=== PATIENT | male | born 1990 | race American Indian/Alaskan Native ===

== ENCOUNTER 2018-12-17 18:03 | Emergency (ER) | payer MEDICAID ==
--- NOTE | 2018-12-17 18:17 | Emergency Department Report ---
Blank Doc - Documentation Documentation: This is a 28-year-old male that presents with abdominal pain and diarrhea. This initial assessment/diagnostic orders/clinical plan/treatment(s) is/are subject to change based on patient's health status, clinical progression and re- assessment by fellow clinical providers in the ED. Further treatment and workup at subsequent clinical providers discretion. Patient/guardians urged not to elope from the ED as their condition may be serious if not clinically assessed and managed. Initial orders include: 1- Patient sent to [facility] for further evaluation and treatment 2- labs 3- UA
[2018-12-17 18:46] LABS: Basophils % (Auto) 0.4 % (0.0-1.8); Eosinophils # (Auto) 0.1 K/mm3 (0.0-0.4); Eosinophils % (Auto) 1.7 % (0.0-4.3); Hematocrit 40.9 % (35.5-45.6); Hemoglobin 14.2 gm/dl (11.8-15.2); Lymphocytes # (Auto) 2.8 K/mm3 (1.2-5.4); Mean Corpuscular HGB Conc 35 % (32-34); Mean Corpuscular Volume 94 fl (84-94); Monocytes # (Auto) 0.6 K/mm3 (0.0-0.8); Monocytes % (Auto) 7.1 % (0.0-7.3); Platelet Count 227 K/mm3 (140-440); Red Blood Count 4.34 M/mm3 (3.65-5.03); Red Cell Distribution Width 12.8 % (13.2-15.2)
--- NOTE | 2018-12-17 19:00 | XRay Report ---
. ABDOMEN 3 views, 12/17/2018 INDICATION: abd pain FINDINGS: The bowel gas pattern is within normal limits. There are no dilated loops of large or small bowel. No free air is identified. No radiopaque urinary tract calculi are seen. Lungs are clear. IMPRESSION: No acute findings. Signer Name: Jose Banda MD Signed: 12/17/2018 6:56 PM Workstation Name: [id number]
[2018-12-17 19:07] LABS: Alanine Aminotransferase 23 units/L (7-56); Albumin 4.2 g/dL (3.9-5); BUN/Creatinine Ratio 24; Blood Urea Nitrogen 22 mg/dL (9-20); Calcium 9.5 mg/dL (8.4-10.2); Hemolysis Index 17
[2018-12-17 19:39] LABS: Bilirubin,Urine NEG (Negative); Blood,Urine SM (Negative); Calcium Oxalate Crystals,Urine 1+; Color,Urine Yellow (Yellow); Mucus,Urine 1+ /HPF; Protein,Urine <15 mg/dL mg/dL (Negative); Urobilinogen,Urine < 2.0 mg/dL (<2.0)
[2018-12-17] MEDS ORDERED: NACL 0.9% 1000 ML 1,000 ML IV ONE (21:01)
[2018-12-17] MEDS ORDERED: TORADOL IV ONE (21:01)
[2018-12-17] MEDS ORDERED: ZOFRAN IV ONE (21:01)
[2018-12-17] MEDS ORDERED: TORADOL ONE (21:18)
--- NOTE | 2018-12-17 21:38 | Emergency Department Report ---
ED Abdominal Pain HPI - General Chief Complaint: Abdominal Pain Stated Complaint: ABD PAIN Time Seen by Provider: 12/17/18 18:16 Source: patient Mode of arrival: Ambulatory Limitations: No Limitations - History of Present Illness Initial Comments: This is a 28-year-old male that presents with abdominal pain and diarrhea. sudden onset this am state he ate left over chicken last pm and was awakened by abd pain this am approx 4am, pain described as sharp aching periumbilical radiating to right flank, dysuria and frequency. pt denies fever does endorse alvin david MD Complaint: abdominal pain Onset/Timin -: hour(s) Location: periumbilical, R flank Radiation: R flank Migration to: R flank Severity: moderate Severity scale (0 -10): 5 Quality: aching, sharp Consistency: constant Improves With: nothing Worsens With: eating Associated Symptoms: nausea, vomiting, dysuria - Related Data Previous Rx's Medication Instructions Recorded Last Taken Type Ondansetron [Zofran Odt] 4 mg PO Q8HR PRN #12 tab.rapdis 12/17/18 Unknown Rx Tamsulosin [Flomax] 0.4 mg PO QDAY 15 Days #15 cap 12/17/18 Unknown Rx traMADol [Ultram] 50 mg PO Q6HR PRN #12 tablet 12/17/18 Unknown Rx Allergies Allergy/AdvReac Type Severity Reaction Status Date / Time amoxicillin Allergy Unknown Verified 12/17/18 18:21 Penicillins Allergy Unknown Verified 12/17/18 18:21 ED Review of Systems ROS: Stated complaint: ABD PAIN Other details as noted in HPI Constitutional: malaise. denies: chills, fever Eyes: denies: eye pain, eye discharge, vision change ENT: denies: ear pain, throat pain Respiratory: denies: cough, shortness of breath, wheezing Cardiovascular: denies: chest pain, palpitations Endocrine: no symptoms reported Gastrointestinal: abdominal pain, nausea, vomiting Genitourinary: urgency, dysuria, frequency. denies: hematuria, discharge Musculoskeletal: denies: back pain, joint swelling, arthralgia Skin: denies: rash, lesions Neurological: denies: headache, weakness, paresthesias Psychiatric: denies: anxiety, depression Hematological/Lymphatic: denies: easy bleeding, easy bruising ED Past Medical Hx - Past Medical History Previous Medical History?: Yes Hx Seizures: Yes Hx Psychiatric Treatment: Yes (bipolar,) Additional medical history: h pylori - Surgical History Past Surgical History?: Yes Additional Surgical History: intubated, abd surgery - Social History Smoking Status: Never Smoker Substance Use Type: None - Medications Home Medications: Home Medications Medication Instructions Recorded Confirmed Last Taken Type Ondansetron [Zofran Odt] 4 mg PO Q8HR PRN #12 tab.rapdis 12/17/18 Unknown Rx Tamsulosin [Flomax] 0.4 mg PO QDAY 15 Days #15 cap 12/17/18 Unknown Rx traMADol [Ultram] 50 mg PO Q6HR PRN #12 tablet 12/17/18 Unknown Rx ED Physical Exam - General Limitations: No Limitations General appearance: alert, in no apparent distress - Head Head exam: Present: atraumatic, normocephalic - Eye Eye exam: Present: normal appearance, PERRL, EOMI Pupils: Present: normal accommodation - ENT ENT exam: Present: mucous membranes moist - Neck Neck exam: Present: normal inspection, full ROM. Absent: tenderness, lymphadenopathy - Respiratory Respiratory exam: Present: normal lung sounds bilaterally, chest wall tenderness. Absent: respiratory distress, wheezes, stridor - Cardiovascular Cardiovascular Exam: Present: regular rate, normal rhythm, normal heart sounds. Absent: systolic murmur, diastolic murmur, rubs, gallop - GI/Abdominal GI/Abdominal exam: Present: soft, tenderness (periumbilical ), normal bowel sounds. Absent: distended, guarding, rebound, rigid, bruit, hernia - Rectal Rectal exam: Present: deferred - Extremities Exam Extremities exam: Present: normal inspection, full ROM, normal capillary refill. Absent: tenderness - Back Exam Back exam: Present: normal inspection, full ROM, tenderness, CVA tenderness (R). Absent: CVA tenderness (L), muscle spasm, rash noted - Neurological Exam Neurological exam: Present: alert, oriented X3, CN II-XII intact, normal gait, reflexes normal. Absent: motor sensory deficit - Psychiatric Psychiatric exam: Present: normal affect, normal mood - Skin Skin exam: Present: warm, dry, intact, normal color. Absent: rash ED Course Vital Signs 12/17/18 12/17/18 18:16 22:29 Temperature 98.3 F 98.7 F Pulse Rate 87 62 Respiratory 16 14 Rate Blood Pressure 154/82 Blood Pressure 100/65 [Left] O2 Sat by Pulse 97 97 Oximetry ED Medical Decision Making - Lab Data Result diagrams: 12/17/18 18:19 12/17/18 18:19 Labs 12/17/18 12/17/18 12/17/18 18:19 18:19 19:26 WBC 8.7 RBC 4.34 Hgb 14.2 Hct 40.9 MCV 94 MCH 33 H MCHC 35 H RDW 12.8 L Plt Count 227 Lymph % (Auto) 32.0 Gregg % (Auto) 7.1 Eos % (Auto) 1.7 Baso % (Auto) 0.4 Lymph # 2.8 Gregg # 0.6 Eos # 0.1 Baso # 0.0 Seg Neutrophils % 58.8 Seg Neutrophils # 5.1 Sodium 137 Potassium 3.7 Chloride 103.7 Carbon Dioxide 20 L Anion Gap 17 BUN 22 H Creatinine 0.9 Estimated GFR > 60 BUN/Creatinine Ratio 24 Glucose 114 H Calcium 9.5 Total Bilirubin 0.20 AST 24 ALT 23 Alkaline Phosphatase 67 Total Protein 7.6 Albumin 4.2 Albumin/Globulin Ratio 1.2 Lipase 31 Urine Color Yellow Urine Turbidity Slightly-cloudy Urine pH 6.0 Ur Specific [place] 1.026 Urine Protein <15 mg/dl Urine Glucose (UA) Neg Urine Ketones Tr Urine Blood Sm Urine Nitrite Neg Urine Bilirubin Neg Urine Urobilinogen < 2.0 Ur Leukocyte Esterase Neg Urine WBC (Auto) 3.0 Urine RBC (Auto) 19.0 Calcium Oxalate Crystal 1+ Urine Mucus 1+ - Radiology Data Radiology results: report reviewed, image reviewed Ordering Physician: MITZI ROCK NP Date of Service: 12/17/18 Procedure(s): CT abdomen pelvis wo con Accession Number(s): [id number] cc: MITZI ROCK NP CT abdomen pelvis wo con INDICATION: abd pain. TECHNIQUE: All CT scans at this location are performed using CT dose reduction for ALARA by means of automated exposure control. COMPARISON: None FINDINGS: Lung bases are clear. Liver, spleen and pancreas are negative. Gallbladder is collapsed, with no obvious stones. Numerous, nonobstructing calculi are demonstrated in both kidneys, especially on the left. Neither kidney is hydronephrotic. No ureteral calculi. Pelvis Appendix has apparently been resected. Urinary bladder and distal ureters are negative. No significant bowel abnormalities. IMPRESSION: 1. Multiple nonobstructing renal calculi, especially on the left. No hydronephrosis or ureteral calculi. 2. No definite acute abnormality. Signer Name: Jaime Cervantes MD Signed: 12/17/2018 10:30 PM Workstation Name: [id number] Transcribed By: TM Dictated By: Jaime Cervantes MD Electronically Authenticated By: Jaime Cervantes MD Signed Date/Time: 12/17/182229 DD/ 25 TD/TT: Ordering Physician: RAKEL MUIR NP Date of Service: 12/17/18 Procedure(s): XR abd series w cxr 1V Accession Number(s): [id number] cc: RAKEL MUIR NP Fluoro Time In Minutes: . ABDOMEN 3 views, 12/17/2018 INDICATION: abd pain FINDINGS: The bowel gas pattern is within normal limits. There are no dilated loops of large or small bowel. No free air is identified. No radiopaque urinary tract calculi are seen. Lungs are clear. IMPRESSION: No acute findings. Signer Name: Jose Banda MD Signed: 12/17/2018 6:56 PM Workstation Name: [id number] Transcribed By: SS Dictated By: Jose Banda MD Electronically Authenticated By: Jose Banda MD Signed Date/Time: 12/17/181855 DD/ 54 TD/TT: - Medical Decision Making CT abdomen and pelvis positive for multiple stones hydronephrosis no obstruction or symptoms of pyelonephritis plan DC home patient will follow up with urology in 2-3 days with increasing prescriptions for Flomax and Ultram UA neg for leuk or wbc. Critical care attestation.: If time is entered above; I have spent that time in minutes in the direct care of this critically ill patient, excluding procedure time. ED Disposition Clinical Impression: Kidney stones Disposition: DC-01 TO HOME OR SELFCARE Is pt being admited?: No Does the pt Need Aspirin: No Condition: Stable Instructions: Kidney Stones (ED) Prescriptions: Tamsulosin [Flomax] 0.4 mg PO QDAY 15 Days #15 cap traMADol [Ultram] 50 mg PO Q6HR PRN #12 tablet PRN Reason: Pain Ondansetron [Zofran Odt] 4 mg PO Q8HR PRN #12 tab.rapdis PRN Reason: Nausea And Vomiting Referrals: PRIMARY CARE,MD [Primary Care Provider] - 3-5 Days Forms: Work/School Release Form(ED) Time of Disposition: 23:04
[2018-12-17 22:30] VITALS: BP 100/65
--- NOTE | 2018-12-17 22:34 | Cat Scan Report ---
CT abdomen pelvis wo con INDICATION: abd pain. TECHNIQUE: All CT scans at this location are performed using CT dose reduction for ALARA by means of automated e xposure control. COMPARISON: None FINDINGS: Lung bases are clear. Liver, spleen and pancreas are negative. Gallbladder is collapsed, with no obvi ous stones. Numerous, nonobstructing calculi are demonstrated in both kidneys, especially on the left . Neither kidney is hydronephrotic. No ureteral calculi. Pelvis Appendix has apparently been resected. Urinary bladder and distal ureters are negative. No significan t bowel abnormalities. IMPRESSION: 1. Multiple nonobstructing renal calculi, especially on the left. No hydronephrosis or ureteral calcu li. 2. No definite acute abnormality. Signer Name: Jaime Cervantes MD Signed: 12/17/2018 10:30 PM Workstation Name: [id number]
== END 2018-12-17 23:22 | disposition home or self-care (01) ==
LOC: ED 18:03
DX: N20.0 Calculus of kidney (principal); R11.2 Nausea with vomiting, unspecified; R30.0 Dysuria; F31.9 Bipolar disorder, unspecified; Z98.890 Other specified postprocedural states; Z79.899 Other long term (current) drug therapy; Z88.1 Allergy status to other antibiotic agents; Z88.0 Allergy status to penicillin
CPT/HCPCS: 36415; 74022; 74176; 80053; 81001; 83690; 85025; 96361; 96374; 96375; 99284; J1885; J2405; J7030

== ENCOUNTER 2018-12-24 12:44 | Emergency (ER) | payer MEDICAID ==
--- NOTE | 2018-12-24 14:24 | Emergency Department Report ---
ED Psych HPI - General Chief Complaint: Psych Stated Complaint: SUICIDAL IDEATION Time Seen by Provider: 12/24/18 14:19 Source: patient, EMS Mode of arrival: Ambulatory - History of Present Illness Initial Comments: 28-year-old male states "I've been depressed all my life". When asked if there was any precipitating life stressor he stated, "I am being addicted". He states he has a history of bipolar disorder, schizophrenia, violent outbursts, autism. I am told that he was on any stating that he was going to jump. He also states he has homicidal thoughts as well. He is cooperative at this time and eating in the holding area. MD Complaint: suicidal ideation, other -: Gradual, days(s) Associated Psychiatric Symptoms: suicidal ideation, homicidal ideation History of same: Yes (states never hospitalized for the same) Quality: intermittent Improves With: none Worsens With: none Associated Symptoms: denies other symptoms Treatments Prior to Arrival: placed on mental he If Self Harm: admits thoughts of - Related Data Home Medications Medication Instructions Recorded Confirmed Last Taken Divalproex ER [DepaKOTE ER] 1,500 mg PO QHS 12/24/18 12/24/18 12/23/18 OLANZapine [Zyprexa] 20 mg PO QHS 12/24/18 12/24/18 12/23/18 Topiramate [Topamax] 50 mg PO BID 12/24/18 12/24/18 12/23/18 Trazodone HCl 150 mg PO QHS 12/24/18 12/24/18 12/23/18 busPIRone [Buspar] 5 mg PO TID 12/24/18 12/24/18 12/23/18 Allergies Allergy/AdvReac Type Severity Reaction Status Date / Time amoxicillin Allergy Unknown Verified 12/17/18 18:21 Penicillins Allergy Unknown Verified 12/17/18 18:21 ED Review of Systems ROS: Stated complaint: SUICIDAL IDEATION Other details as noted in HPI Constitutional: denies: chills, fever Eyes: denies: eye pain, eye discharge, vision change ENT: denies: ear pain, throat pain Respiratory: denies: cough, shortness of breath, wheezing Cardiovascular: denies: chest pain, palpitations Endocrine: no symptoms reported Gastrointestinal: denies: abdominal pain, nausea, diarrhea Genitourinary: denies: urgency, dysuria Musculoskeletal: denies: back pain, joint swelling, arthralgia Skin: denies: rash, lesions Neurological: denies: headache, weakness, paresthesias Psychiatric: depression, homicidal thoughts, suicidal thoughts. denies: anxiety Hematological/Lymphatic: denies: easy bleeding, easy bruising ED Past Medical Hx - Past Medical History Hx Seizures: Yes Hx Psychiatric Treatment: Yes (bipolar,) Additional medical history: h pylori - Surgical History Additional Surgical History: intubated, abd surgery - Social History Smoking Status: Never Smoker Substance Use Type: None - Medications Home Medications: Home Medications Medication Instructions Recorded Confirmed Last Taken Type Divalproex ER [DepaKOTE ER] 1,500 mg PO QHS 12/24/18 12/24/18 12/23/18 History OLANZapine [Zyprexa] 20 mg PO QHS 12/24/18 12/24/18 12/23/18 History Topiramate [Topamax] 50 mg PO BID 12/24/18 12/24/18 12/23/18 History Trazodone HCl 150 mg PO QHS 12/24/18 12/24/18 12/23/18 History busPIRone [Buspar] 5 mg PO TID 12/24/18 12/24/18 12/23/18 History ED Physical Exam - General Limitations: No Limitations General appearance: alert, in no apparent distress - Head Head exam: Present: atraumatic, normocephalic - Eye Eye exam: Present: normal appearance. Absent: scleral icterus - ENT ENT exam: Present: mucous membranes moist - Neck Neck exam: Present: normal inspection - Respiratory Respiratory exam: Present: normal lung sounds bilaterally. Absent: respiratory distress - Cardiovascular Cardiovascular Exam: Present: regular rate, normal rhythm. Absent: systolic murmur, diastolic murmur, rubs, gallop - GI/Abdominal GI/Abdominal exam: Present: soft, normal bowel sounds. Absent: distended, tenderness, guarding, rebound, rigid - Rectal Rectal exam: Present: deferred - Extremities Exam Extremities exam: Present: normal inspection. Absent: pedal edema, calf tenderness - Back Exam Back exam: Present: normal inspection - Neurological Exam Neurological exam: Present: alert, oriented X3, CN II-XII intact. Absent: motor sensory deficit - Psychiatric Psychiatric exam: Present: normal affect, normal mood - Skin Skin exam: Present: warm, dry, intact, normal color. Absent: rash ED Course Vital Signs 12/24/18 12/24/18 13:05 14:22 Temperature 97.6 F 97.6 F Pulse Rate 66 66 Respiratory 18 18 Rate Blood Pressure 106/67 Blood Pressure 106/67 [Right] O2 Sat by Pulse 99 99 Oximetry - Reevaluation(s) Reevaluation #1: Although the patient appears to have social circumstances that may result in secondary gain after psychiatric placement, he will be placed under 1013. The counselor and nurses practitioner to evaluate. 12/24/18 14:23 ED Medical Decision Making - Lab Data Result diagrams: 12/24/18 14:40 12/24/18 14:40 Critical care attestation.: If time is entered above; I have spent that time in minutes in the direct care of this critically ill patient, excluding procedure time. ED Disposition Clinical Impression: Suicidal ideation Schizophrenia Qualifiers: Schizophrenia type: unspecified Qualified Code(s): F20.9 - Schizophrenia, unspecified Disposition: DC/TX-65 PSY HOSP/PSY UNIT Is pt being admited?: No Does the pt Need Aspirin: No Condition: Stable
[2018-12-24 14:39] LABS: Bilirubin,Urine NEG (Negative); Blood,Urine NEG (Negative); Color,Urine Yellow (Yellow); Mucus,Urine 2+ /HPF; Protein,Urine <15 mg/dL mg/dL (Negative); Urobilinogen,Urine < 2.0 mg/dL (<2.0)
[2018-12-24 14:45] LABS: Amphetamine Screen,Urine PRESUMPTIVE NEGATIVE; Benzodiazepines Screen,Urine PRESUMPTIVE NEGATIVE; Cannabinoid Screen,Urine PRESUMPTIVE NEGATIVE; Cocaine Screen,Urine PRESUMPTIVE NEGATIVE; Methadone Screen,Urine PRESUMPTIVE NEGATIVE; Opiate Screen,Urine PRESUMPTIVE NEGATIVE
[2018-12-24 14:56] LABS: Basophils % (Auto) 0.4 % (0.0-1.8); Eosinophils # (Auto) 0.1 K/mm3 (0.0-0.4); Eosinophils % (Auto) 1.2 % (0.0-4.3); Hematocrit 40.4 % (35.5-45.6); Lymphocytes # (Auto) 2.9 K/mm3 (1.2-5.4); Lymphocytes % (Auto) 35.9 % (13.4-35.0); Mean Corpuscular HGB Conc 35 % (32-34); Mean Corpuscular Volume 94 fl (84-94); Monocytes # (Auto) 0.5 K/mm3 (0.0-0.8); Monocytes % (Auto) 5.9 % (0.0-7.3); Platelet Count 217 K/mm3 (140-440); Red Blood Count 4.29 M/mm3 (3.65-5.03); Red Cell Distribution Width 12.8 % (13.2-15.2)
[2018-12-24] MEDS ORDERED: MILK OF MAGNESIA PO PRN (15:08)
[2018-12-24] MEDS ORDERED: ALUM-MAG HYDROX-SIMETH 200-200-20MG/5ML PO PRN (15:08)
[2018-12-24] MEDS ORDERED: TYLENOL PO PRN (15:08)
[2018-12-24 15:16] LABS: BUN/Creatinine Ratio 24; Blood Urea Nitrogen 19 mg/dL (9-20); Calcium 9.2 mg/dL (8.4-10.2); Hemolysis Index 10
[2018-12-24] MEDS: TOPAMAX PO SCH ×2 (18:15→22:16)
[2018-12-24] MEDS: BUSPAR PO SCH ×2 (18:15→22:16)
[2018-12-24] MEDS: DESYREL PO SCH (22:16)
[2018-12-25 09:15] LABS: Alanine Aminotransferase 22 units/L (7-56)
[2018-12-25] MEDS: TOPAMAX PO SCH ×3 (11:35→22:28)
[2018-12-25] MEDS: BUSPAR PO SCH (11:35)
--- NOTE | 2018-12-25 13:26 | Consultation ---
History of Present Illness - Reason for Consult Consult date: 12/25/18 Reason for consult: Mental Health Evaluation Requesting physician: BALJINDER LAGUERRE - Chief Complaint Chief complaint: "I [facility]" - History of Present Psychiatric Illness 28 y.o. male who presented to the ER for SI/HI's. Today the patient was clam and cooperative during the assessment. He stated that he do not like residing at '[facility]" because the staff and residents are "awful" per the patient. He stated that he got into some type of argument yesterday at his residence and decided to leave. He stated that he felt like "[facility] He stated that he would like to move some where else once discharged. He stated that he was upset when he gestured "[facility] He stated that he has a hx of bipolar do and anxiety. He stated that he take Zyprexa, Buspar, and Depakote. He stated that he is compliant with his medications. He denies HI's and AVH's. He would not confirm or deny SI's. He denies erratic sleep and a poor appetite. He denies recreational drug use and alcohol consumption (etoh),. Medications and Allergies Allergies Allergy/AdvReac Type Severity Reaction Status Date / Time amoxicillin Allergy Unknown Verified 12/17/18 18:21 Penicillins Allergy Unknown Verified 12/17/18 18:21 Home Medications Medication Instructions Recorded Confirmed Last Taken Type Divalproex ER [DepaKOTE ER] 1,500 mg PO QHS 12/24/18 12/24/18 12/23/18 History OLANZapine [Zyprexa] 20 mg PO QHS 12/24/18 12/24/18 12/23/18 History Topiramate [Topamax] 50 mg PO BID 12/24/18 12/24/18 12/23/18 History Trazodone HCl 150 mg PO QHS 12/24/18 12/24/18 12/23/18 History busPIRone [Buspar] 5 mg PO TID 12/24/18 12/24/18 12/23/18 History Active Meds: Active Medications Acetaminophen (Tylenol) 650 mg PO Q4HR PRN PRN Reason: Pain MILD(1-3)/Fever >100.5/LOPEZ Al Hydrox/Mg Hydrox/Simethicone (Alum-Mag Hydrox-Simeth [phone]/5ml) 30 ml PO Q4HR PRN PRN Reason: Indigestion Magnesium Hydroxide (Milk Of Magnesia) 30 ml PO Q12HR PRN PRN Reason: Constipation Olanzapine (Zyprexa) 20 mg PO QHS [facility] Last Admin: 12/24/18 22:16 Dose: 20 mg Documented by: Topiramate (Topamax) 50 mg PO Q12HR [facility] Last Admin: 12/25/18 11:35 Dose: 50 mg Documented by: Trazodone HCl (Desyrel) 150 mg PO QHS [facility] Last Admin: 12/24/18 22:16 Dose: 150 mg Documented by: Past psychiatric history - Past Medical History Past Medical History: seizures, stroke Past Surgical History: No surgical history - past Psychiatric treatment and history psychiatric treatment history: Several; inpatient psy settings in the past. Denies a fam psy hx. - Social History Social history: other (Reside at [facility]) Mental Status Exam - Vital signs Last Vital Signs Temp 98.5 F 12/25/18 11:03 Pulse 68 12/25/18 11:03 Resp 16 12/25/18 11:03 BP 102/60 12/25/18 11:03 Pulse Ox 99 12/25/18 11:03 - Exam Narrative exam: MSE: Appearance: cooperative Behavior: regular eye contact Speech: regular rate and tone Mood: "okay" Affect: flat Thought Process: congruent to mood Thought Content: denies HI's and AVH's Motor Activity: sitting up in bed Cognition: A/O x3 Insight: variable Judgment: poor Results Result Diagrams: 12/24/18 14:40 12/24/18 14:40 Abnormal lab results 12/24/18 12/24/18 Range/Units 14:40 14:40 MCH 33 H (28-32) pg MCHC 35 H (32-34) % RDW 12.8 L (13.2-15.2) % Lymph % (Auto) 35.9 H (13.4-35.0) % Glucose 124 H (75-100) mg/dL All other labs normal. Assessment and Plan Assessment and plan: Impression: Unspecified Mood DO. Unspecified Intellectual Disability and Unspecified Anxiety DO per the record. Today the patient was calm during the assessment. The patient would not confirm or deny SI's. DDx: Bipolar DO, MDD Recommendation/Plan: Continue 1013 and home medications Zyprexa 20 mg PO HS for mood. Modify Buspar to 7.5 mg PO BID for anxiety and Depakote to 1000 mg PO HS for mood. Discussed possible metabolic side effects of Zyprexa with the patient, he verbalized understanding. . Dispo: The patient was referred to inpatient psy services. Staffed with Dr Ingrid Portillo.
[2018-12-25] MEDS ORDERED: BUSPAR PO SCH (22:00)
[2018-12-25] MEDS: DESYREL PO SCH (22:06)
[2018-12-26 02:58] VITALS: BP 128/65
== END 2018-12-26 05:15 ==
LOC: ED 12:44 → EEVIPCON 12:44 → ED 12-26 05:15
DX: F20.9 Schizophrenia, unspecified (principal); F31.9 Bipolar disorder, unspecified; Z98.890 Other specified postprocedural states; Z88.1 Allergy status to other antibiotic agents; Z88.0 Allergy status to penicillin; Z79.899 Other long term (current) drug therapy
CPT/HCPCS: 36415; 80048; 80164; 80307; 80320; 81001; 82150; 83690; 84075; 84450; 84460; 85025; 99285; G0480

== ENCOUNTER 2020-07-26 03:37 | Emergency (ER) | payer MEDICAID ==
[2020-07-26] MEDS ORDERED: KETOROLAC 30 MG/1 ML INJ IV ONE (04:23)
[2020-07-26] MEDS ORDERED: ONDANSETRON 4 MG/2 ML INJ IV ONE (04:23)
[2020-07-26] MEDS ORDERED: SODIUM CHLORIDE 0.9% 1000 ML 1,000 ML IV ONE (04:23)
[2020-07-26] MEDS ORDERED: FAMOTIDINE 20 MG/2 ML INJ IV ONE (04:23)
[2020-07-26 04:36] LABS: Bilirubin,Urine NEG (Negative); Blood,Urine NEG (Negative); Color,Urine Straw (Yellow); Mucus,Urine FEW /HPF; Protein,Urine <15 mg/dL mg/dL (Negative); Urobilinogen,Urine < 2.0 mg/dL (<2.0)
[2020-07-26 05:37] LABS: Basophils % (Auto) 0.4 % (0.0-1.8); Eosinophils # (Auto) 0.2 K/mm3 (0.0-0.4); Eosinophils % (Auto) 3.2 % (0.0-4.3); Hemoglobin 12.8 gm/dl (11.8-15.2); Lymphocytes # (Auto) 3.1 K/mm3 (1.2-5.4); Lymphocytes % (Auto) 41.9 % (13.4-35.0); Mean Corpuscular HGB Conc 36 % (32-34); Mean Corpuscular Volume 89 fl (84-94); Monocytes # (Auto) 0.9 K/mm3 (0.0-0.8); Monocytes % (Auto) 12.3 % (0.0-7.3); Platelet Count 203 K/mm3 (140-440); Red Blood Count 4.03 M/mm3 (3.65-5.03); Red Cell Distribution Width 13.3 % (13.2-15.2)
--- NOTE | 2020-07-26 05:38 | Emergency Department Report ---
<GEOVANI WALLACE - Last Filed: 07/26/20 05:32> ED Abdominal Pain HPI - General Chief Complaint: Abdominal Pain Stated Complaint: ABD PAIN Time Seen by Provider: 07/26/20 04:19 Source: patient Mode of arrival: Stretcher Limitations: No Limitations - History of Present Illness Initial Comments: Patient is a 30-year-old male with past medical history of psychiatric illnesses as well as kidney stones who is presenting with abdominal pain. Patient states that he is having general abdominal pain in the area where he has had surgery in the past. When asked what surgery states he does remember what surgery he had. States he several years ago was in a coma and ended up having some type of surgery. Do not see a record of the surgery in our system. Patient has been here multiple times for abdominal pain. Last time the patient was here he did have kidney stones but also because of his psychiatric history was stating that he had just got out of another hospital and had a and several babies. Patient was very upset when he was told that he had no uterus. As far as today the patient states he is having having nausea vomiting all day. His abdominal pain is epigastric down through the umbilicus. He is denying any diarrhea or dysuria. There is been no cough cold or congestion according to the patient. Severity scale (0 -10): 10 - Related Data Home Medications Medication Instructions Recorded Confirmed Last Taken Topiramate [Topamax] 50 mg PO BID 12/24/18 12/24/18 12/23/18 Previous Rx's Medication Instructions Recorded Last Taken Type Tamsulosin [Flomax] 0.4 mg PO ONCE 14 Days #14 capsule 12/19/19 Unknown Rx Divalproex ER [Depakote ER] 1,500 mg PO QHS #30 12/29/19 Unknown Rx LORazepam [Ativan] 1 mg PO BID #30 tablet 12/29/19 Unknown Rx OLANZapine [Zyprexa] 20 mg PO QHS #30 12/29/19 Unknown Rx Trazodone HCl 150 mg PO QHS #100 12/29/19 Unknown Rx busPIRone [Buspar] 5 mg PO TID #90 12/29/19 Unknown Rx carBAMazepine [TEGretol] 200 mg PO BID #60 tablet 12/29/19 Unknown Rx Allergies Allergy/AdvReac Type Severity Reaction Status Date / Time amoxicillin Allergy Unknown Verified 12/17/18 18:21 Penicillins Allergy Unknown Verified 12/17/18 18:21 ED Review of Systems Comment: All other systems reviewed and negative ED Past Medical Hx - Past Medical History Previous Medical History?: Yes Hx Seizures: Yes Hx Psychiatric Treatment: Yes (bipolar,) Additional medical history: h pylori - Surgical History Past Surgical History?: Yes Additional Surgical History: intubated, abd surgery - Social History Smoking Status: Never Smoker Substance Use Type: None - Medications Home Medications: Home Medications Medication Instructions Recorded Confirmed Last Taken Type Topiramate [Topamax] 50 mg PO BID 12/24/18 12/24/18 12/23/18 History Tamsulosin [Flomax] 0.4 mg PO ONCE 14 Days #14 capsule 12/19/19 Unknown Rx Divalproex ER [Depakote ER] 1,500 mg PO QHS #30 12/29/19 Unknown Rx LORazepam [Ativan] 1 mg PO BID #30 tablet 12/29/19 Unknown Rx OLANZapine [Zyprexa] 20 mg PO QHS #30 12/29/19 Unknown Rx Trazodone HCl 150 mg PO QHS #100 12/29/19 Unknown Rx busPIRone [Buspar] 5 mg PO TID #90 12/29/19 Unknown Rx carBAMazepine [TEGretol] 200 mg PO BID #60 tablet 12/29/19 Unknown Rx ED Physical Exam - General Limitations: No Limitations General appearance: alert, in no apparent distress - Head Head exam: Present: atraumatic, normocephalic - Eye Eye exam: Present: normal appearance - ENT ENT exam: Present: normal orophraynx, mucous membranes moist - Neck Neck exam: Present: normal inspection - Respiratory Respiratory exam: Present: normal lung sounds bilaterally. Absent: respiratory distress, wheezes, rales - Cardiovascular Cardiovascular Exam: Present: regular rate, normal rhythm. Absent: systolic murmur, diastolic murmur, rubs, gallop - GI/Abdominal GI/Abdominal exam: Present: soft, tenderness (Generalized abdominal pain but more so in the epigastric region down to the umbilicus), normal bowel sounds. Absent: distended, guarding, rebound - Rectal Rectal exam: Present: deferred - Extremities Exam Extremities exam: Present: normal inspection - Back Exam Back exam: Present: normal inspection - Neurological Exam Neurological exam: Present: alert, oriented X3 - Psychiatric Psychiatric exam: Present: normal affect, normal mood - Skin Skin exam: Present: warm, dry, intact, normal color. Absent: rash ED Disposition Clinical Impression: Kidney stone, Hydronephrosis, Flank pain, acute Disposition: DC-01 TO HOME OR SELFCARE Condition: Stable Instructions: Kidney Stones, [id number] Referrals: PRIMARY CARE, [Primary Care Provider] - 3-5 Days MARIANA BUTLER MD [Staff Physician] - 3-5 Days <NELSON HERNANDEZ - Last Filed: 07/26/20 08:39> ED Review of Systems ROS: Stated complaint: ABD PAIN Other details as noted in HPI ED Course Vital Signs 07/26/20 07/26/20 07/26/20 04:00 04:30 06:48 Temperature 98.0 F Pulse Rate 86 64 Respiratory 20 18 16 Rate Blood Pressure 110/85 Blood Pressure 106/73 [Left] O2 Sat by Pulse 98 100 Oximetry ED Medical Decision Making - Lab Data Result diagrams: 07/26/20 05:28 07/26/20 05:28 - Radiology Data Radiology results: report reviewed - Medical Decision Making CT abdomen and pelvis showed a left ureteric kidney stone 7 mm and 3 mm with moderate hydronephrosis. Patient stated that his pain is much better. Patient given prescription for tramadol, Zofran and Flomax and advised to follow-up with a urologist in the next 2 to 3 days and to return to the ER if he develop any new symptoms. Critical care attestation.: If time is entered above; I have spent that time in minutes in the direct care of this critically ill patient, excluding procedure time. ED Disposition Is pt being admited?: No
[2020-07-26 05:53] LABS: Alanine Aminotransferase 32 units/L (7-56); Albumin 3.7 g/dL (3.9-5); Blood Urea Nitrogen 20 mg/dL (9-20); Calcium 8.7 mg/dL (8.4-10.2); Hemolysis Index 15
[2020-07-26 06:00] LABS: BUN/Creatinine Ratio 33
--- NOTE | 2020-07-26 06:48 | Cat Scan Report ---
CT ABDOMEN AND PELVIS WITH CONTRAST INDICATION / CLINICAL INFORMATION: diffuse abd pain. TECHNIQUE: Axial CT images were obtained through the abdomen and pelvis after IV contrast. All CT sc ans at this location are performed using CT dose reduction for ALARA by means of automated exposure c ontrol. COMPARISON: CT dated 12/19/2019. FINDINGS: LOWER CHEST: 7 mm nodular density is present within the right lower lobe, not seen on prior study fro m 12/19/2019. Lung bases otherwise clear. LIVER: No significant abnormality GALLBLADDER/BILIARY TREE: No significant abnormality PANCREAS: No significant abnormality SPLEEN: No significant abnormality ADRENALS: No significant abnormality RIGHT KIDNEY: Tiny nonobstructing right renal calculus. No ureteral calculus or hydronephrosis. LEFT KIDNEY: 2 adjacent 7 mm and 4 mm calculi in the proximal left ureter with mild left hydronephros is. URINARY BLADDER: Bladder is partially decompressed, though grossly unremarkable. REPRODUCTIVE ORGANS: No significant abnormality STOMACH / SMALL BOWEL: Stomach and small bowel are normal in caliber. No evidence of bowel inflammati on. COLON: The colon is unremarkable. Appendectomy. LYMPH NODES: No significant adenopathy. VASCULATURE: No significant abnormality. OTHER: No free air, free fluid, or focal fluid collection is identified. 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 No acute process. IMPRESSION: 1. Adjacent 7 mm and 4 mm calculi in the proximal left ureter with mild left hydronephrosis. 2. 7 mm pulmonary nodule right lower lobe. Recommendation detailed below. INCIDENTAL PULMONARY NODULE RECOMMENDATION RECOMMENDATION: Solid Nodule size 6-8 mm -- Single - Low Risk Patient: CT at 6-12 months, then consider CT at 18-24 months - High Risk Patient: CT at 6-12 months, then CT at 18-24 months Note These recommendations do not apply to lung cancer screening, patients with immunosuppression, o r patients with known primary cancer. Note Newly detected indeterminate nodule in persons 35 years of age or older. Persons under the age of 35 should not receive follow-up unless there is a known primary cancer. Note Perifissural Nodule is a fissure-attached/subpleural, homogeneous, solid nodule that has smooth margins and an oval, lentiform, or triangular shape. They represent about 20% of nodules detected in lung cancer screening, are invariably benign, and do not require follow-up. Nodules 10 mm or larger (or those with suspicious features) will continue to be managed based on the size criteria. Low Risk Patient = minimal or absent history of smoking and of other known risk factors. High Risk Patient = history of smoking or of other known risk factors. Nodule dimensions are average of long and short axes, rounded to the nearest millimeter. Based on 2017 Fleischner Society Guidelines found in Radiology 2017 284:228-243. https://doi.[email or web address] https://www.ncbi.nlm.nih.gov/pmc/articles/TQM3566905/ Signer Name: Nelson Hastings MD Signed: 07/26/2020 6:43 AM Workstation Name: [id number]
[2020-07-26 11:39] VITALS: BP 104/63
== END 2020-07-26 11:39 | disposition home or self-care (01) ==
LOC: ED 03:37
DX: N13.30 Unspecified hydronephrosis (principal); N20.0 Calculus of kidney; R10.84 Generalized abdominal pain; R56.9 Unspecified convulsions; F31.9 Bipolar disorder, unspecified; Z98.890 Other specified postprocedural states; Z79.899 Other long term (current) drug therapy; Z88.1 Allergy status to other antibiotic agents; Z88.0 Allergy status to penicillin
CPT/HCPCS: 36415; 74177; 80053; 81001; 83690; 85025; 96374; 96375; 99284; J1885; J2405; J7030; Q9967

== ENCOUNTER 2020-08-14 22:32 | Emergency (ER) | payer MEDICAID ==
[2020-08-14 23:20] VITALS: BP 120/84
--- NOTE | 2020-08-15 00:03 | Emergency Department Report ---
ED General Adult HPI - General Chief complaint: Neuro Symptoms/Deficit Stated complaint: RIGHT LEG NUMBNESS Source: patient Mode of arrival: Stretcher Limitations: No Limitations - History of Present Illness Initial comments: Patient is a 30-year-old male with a history of bipolar type I disorder, anxiety and depression, schizophrenia, chronic low back pain due to lumbar disc disease and seizures presents to the ED with complaint of acute onset persistent lateral right thigh tingling sensation for the last 8 hours after waking up 8 hours ago. Patient states that this feeling of "tingling and numbness" constantly. Patient denies low back pain, heavy lifting, fall, traumatic injury, nausea and vomiting, bilateral lower extremity weakness, fever, chills, dysuria, urinary frequency and urgency, hematuria, testicular pain, abdominal pain, chest pain or shortness of breath. MD Complaint: Lateral right thigh tingling and numbness -: Sudden, hour(s) (8) Location: lower extremity (lateral right thigh) Radiation: non-radiation Severity scale (0 -10): 7 Quality: dull, constant Consistency: constant Improves with: none Worsens with: none Associated Symptoms: denies: denies other symptoms, confusion, chest pain, cough, diaphoresis, fever/chills, headaches, loss of appetite, malaise, nausea/vomiting, rash, seizure, shortness of breath, syncope, weakness, other Treatments Prior to Arrival: none - Related Data Home Medications Medication Instructions Recorded Confirmed Last Taken Topiramate [Topamax] 50 mg PO BID 12/24/18 12/24/18 12/23/18 Previous Rx's Medication Instructions Recorded Last Taken Type Tamsulosin [Flomax] 0.4 mg PO ONCE 14 Days #14 capsule 12/19/19 Unknown Rx Divalproex ER [Depakote ER] 1,500 mg PO QHS #30 12/29/19 Unknown Rx LORazepam [Ativan] 1 mg PO BID #30 tablet 12/29/19 Unknown Rx OLANZapine [Zyprexa] 20 mg PO QHS #30 12/29/19 Unknown Rx Trazodone HCl 150 mg PO QHS #100 12/29/19 Unknown Rx busPIRone [Buspar] 5 mg PO TID #90 12/29/19 Unknown Rx carBAMazepine [TEGretol] 200 mg PO BID #60 tablet 12/29/19 Unknown Rx Ondansetron [Zofran Odt] 4 mg PO Q8HR PRN #14 tab.rapdis 07/26/20 Unknown Rx Tamsulosin [Flomax] 0.4 mg PO QDAY #14 cap 07/26/20 Unknown Rx oxyCODONE /ACETAMINOPHEN [Percocet 1 tab PO Q6HR PRN #14 tablet 07/26/20 Unknown Rx 5/325] Allergies Allergy/AdvReac Type Severity Reaction Status Date / Time amoxicillin Allergy Unknown Verified 12/17/18 18:21 Penicillins Allergy Unknown Verified 12/17/18 18:21 ED Review of Systems ROS: Stated complaint: RIGHT LEG NUMBNESS Other details as noted in HPI Constitutional: denies: chills, fever Eyes: denies: eye pain, eye discharge, vision change ENT: denies: ear pain, throat pain Respiratory: denies: cough, shortness of breath, wheezing Cardiovascular: denies: chest pain, palpitations Endocrine: no symptoms reported Gastrointestinal: denies: abdominal pain, nausea, diarrhea Genitourinary: denies: urgency, dysuria Musculoskeletal: back pain, arthralgia, other (Lateral thigh tingling sensation). denies: joint swelling Skin: denies: rash, lesions Neurological: denies: headache, weakness, paresthesias Psychiatric: denies: anxiety, depression Hematological/Lymphatic: denies: easy bleeding, easy bruising ED Past Medical Hx - Past Medical History Previous Medical History?: Yes Hx Seizures: Yes Hx Psychiatric Treatment: Yes (bipolar,) Additional medical history: h pylori - Surgical History Past Surgical History?: Yes Additional Surgical History: intubated, abd surgery - Social History Smoking Status: Never Smoker Substance Use Type: None - Medications Home Medications: Home Medications Medication Instructions Recorded Confirmed Last Taken Type Topiramate [Topamax] 50 mg PO BID 12/24/18 12/24/18 12/23/18 History Tamsulosin [Flomax] 0.4 mg PO ONCE 14 Days #14 capsule 12/19/19 Unknown Rx Divalproex ER [Depakote ER] 1,500 mg PO QHS #30 12/29/19 Unknown Rx LORazepam [Ativan] 1 mg PO BID #30 tablet 12/29/19 Unknown Rx OLANZapine [Zyprexa] 20 mg PO QHS #30 12/29/19 Unknown Rx Trazodone HCl 150 mg PO QHS #100 12/29/19 Unknown Rx busPIRone [Buspar] 5 mg PO TID #90 12/29/19 Unknown Rx carBAMazepine [TEGretol] 200 mg PO BID #60 tablet 12/29/19 Unknown Rx Ondansetron [Zofran Odt] 4 mg PO Q8HR PRN #14 tab.rapdis 07/26/20 Unknown Rx Tamsulosin [Flomax] 0.4 mg PO QDAY #14 cap 07/26/20 Unknown Rx oxyCODONE /ACETAMINOPHEN [Percocet 1 tab PO Q6HR PRN #14 tablet 07/26/20 Unknown Rx 5/325] ED Physical Exam - General Limitations: No Limitations General appearance: alert, in no apparent distress - Head Head exam: Present: atraumatic, normocephalic, normal inspection - Eye Eye exam: Present: normal appearance, PERRL, EOMI Pupils: Present: normal accommodation - ENT ENT exam: Present: normal exam, normal orophraynx, mucous membranes moist - Neck Neck exam: Present: normal inspection - Respiratory Respiratory exam: Present: normal lung sounds bilaterally. Absent: respiratory distress - Cardiovascular Cardiovascular Exam: Present: regular rate, normal rhythm. Absent: systolic murmur, diastolic murmur, rubs, gallop - GI/Abdominal GI/Abdominal exam: Present: soft, normal bowel sounds. Absent: tenderness, guarding, hyperactive bowel sounds, hypoactive bowel sounds, organomegaly - Extremities Exam Extremities exam: Present: normal inspection, full ROM, normal capillary refill - Back Exam Back exam: Present: normal inspection, full ROM. Absent: tenderness, CVA tenderness (R), CVA tenderness (L), muscle spasm, paraspinal tenderness - Neurological Exam Neurological exam: Present: alert, oriented X3, CN II-XII intact, normal gait, reflexes normal - Psychiatric Psychiatric exam: Present: normal affect, anxious. Absent: flat affect - Skin Skin exam: Present: warm, dry, intact, normal color. Absent: rash ED Course Vital Signs 08/14/20 23:19 Temperature 98.0 F Pulse Rate 72 Respiratory 18 Rate Blood Pressure 120/84 O2 Sat by Pulse 99 Oximetry ED Medical Decision Making - Medical Decision Making This is a 32-year-old -[place] male with no past medical history presents to the ED with complaint of acute onset persistent shortness of breath, wheezing, chest tightness for the last 2 days, worse in the last 12 hours. Patient states the symptoms have been constant and worse with any exertion or movement. Patient states that he did not take medications prior to arrival in the ED and that there is no one else at home or at work with similar symptoms. In the ED, patient is alert and oriented x3 and is not in distress with normal vital signs. Physical exam is unremarkable and patient is resting comfortably in the room in no distress. Patient symptoms likely due to lumbar radiculopathy. Patient was advised to follow-up with his primary care physician in 7 to 10 days for reevaluation. Patient was advised to take regular pain medications and follow-up with the his primary care physician in 7 to 10 days. Patient advised return to the ED immediately if symptoms get worse. - Differential Diagnosis Muscle spasm; anxiety; lumbar radiculopathy; muscle strain Critical care attestation.: If time is entered above; I have spent that time in minutes in the direct care of this critically ill patient, excluding procedure time. ED Disposition Clinical Impression: Lumbar disc disease with radiculopathy Disposition: - TO HOME OR SELFCARE Is pt being admited?: No Does the pt Need Aspirin: No Condition: Stable Instructions: Lumbosacral Radiculopathy Additional Instructions: Follow-up with your primary care physician in 5 to 7 days for reevaluation. Return to the ED immediately if symptoms get worse. Referrals: [facility] [Provider Group] - 3-5 Days [facility] [Outside] - 3-5 Days Time of Disposition: 00:01 Print Language: [employer]INE[employer]
== END 2020-08-15 01:24 | disposition home or self-care (01) ==
LOC: ED 22:32
DX: M54.16 Radiculopathy, lumbar region (principal); R56.9 Unspecified convulsions; F31.9 Bipolar disorder, unspecified; Z98.890 Other specified postprocedural states; Z79.899 Other long term (current) drug therapy; Z88.0 Allergy status to penicillin; Z88.1 Allergy status to other antibiotic agents

== ENCOUNTER 2020-12-18 00:53 | Emergency (ER) | payer MEDICAID ==
[2020-12-18 01:40] VITALS: BP 122/93
[2020-12-18 01:51] LABS: Basophils % (Auto) 0.4 % (0.0-1.8); Eosinophils # (Auto) 0.1 K/mm3 (0.0-0.4); Eosinophils % (Auto) 1.2 % (0.0-4.3); Hematocrit 40.3 % (35.5-45.6); Hemoglobin 14.3 gm/dl (11.8-15.2); Lymphocytes # (Auto) 2.5 K/mm3 (1.2-5.4); Lymphocytes % (Auto) 30.8 % (13.4-35.0); Mean Corpuscular HGB Conc 35 % (32-34); Mean Corpuscular Volume 90 fl (84-94); Monocytes # (Auto) 1.1 K/mm3 (0.0-0.8); Monocytes % (Auto) 13.7 % (0.0-7.3); Platelet Count 202 K/mm3 (140-440); Red Cell Distribution Width 13.1 % (13.2-15.2)
[2020-12-18] MEDS ORDERED: ZIPRASIDONE MESYLATE 20 MG VIAL IM ONE ×2 (02:01→02:03)
[2020-12-18 02:02] LABS: Bilirubin,Urine NEG (Negative); Blood,Urine NEG (Negative); Color,Urine Yellow (Yellow); Mucus,Urine 3+ /HPF; Urobilinogen,Urine < 2.0 mg/dL (<2.0)
[2020-12-18] MEDS ORDERED: LORazepam 2 MG/ML VIAL IM ONE (02:02)
[2020-12-18 02:07] LABS: BUN/Creatinine Ratio 30; Blood Urea Nitrogen 27 mg/dL (9-20); Calcium 10.1 mg/dL (8.4-10.2); Hemolysis Index 7
[2020-12-18 02:07] LABS: Amphetamine Screen,Urine Negative; Benzodiazepines Screen,Urine Negative; Cannabinoid Screen,Urine Negative; Cocaine Screen,Urine Negative; Methadone Screen,Urine Negative; Opiate Screen,Urine Negative
--- NOTE | 2020-12-18 02:07 | Emergency Department Report ---
ED Psych HPI - General Chief Complaint: Psych Stated Complaint: MH EVAL/MED REFILL Time Seen by Provider: 12/18/20 01:39 Source: patient, EMS Mode of arrival: Ambulatory - History of Present Illness Initial Comments: Patient is a 30-year-old male presents emergency room for a mental health evaluation. Patient states he has been off his medications for 4 days. Patient is complaining of suicidal and homicidal ideation. Patient complaining of audiovisual hallucinations. Patient states that he cannot stop seen. Patient states that he is out to get people. Patient states that people are out to get him. Patient states that he feels bugs crawling all over him. Patient denies physical complaints. Patient denies headache. Patient denies chest pain and shortness of breath patient denies fever or chills. Patient denies recent travel. Patient denies recent international travel. Patient denies exposure to the novel coronavirus. Patient denies sick contacts. Patient denies fever and chills. Patient denies cough. Patient denies diarrhea. Patient denies coming in contact with anybody with symptoms of the novel coronavirus. -: Sudden Associated Psychiatric Symptoms: suicidal ideation, homicidal ideation, racing thoughts, auditory hallucinations, visual hallucinations, delusions Quality: constant Improves With: none Worsens With: none Context: not taking psychiatric, significant life stressor Associated Symptoms: denies: confusion, headache, shortness of breath, nausea, vomiting, syncope, insomnia If Self Harm: admits thoughts of - Related Data Home Medications Medication Instructions Recorded Confirmed Last Taken Topiramate [Topamax] 50 mg PO BID 12/24/18 12/24/18 12/23/18 Previous Rx's Medication Instructions Recorded Last Taken Type Tamsulosin [Flomax] 0.4 mg PO ONCE 14 Days #14 capsule 12/19/19 Unknown Rx Divalproex ER [Depakote ER] 1,500 mg PO QHS #30 12/29/19 Unknown Rx LORazepam [Ativan] 1 mg PO BID #30 tablet 12/29/19 Unknown Rx OLANZapine [Zyprexa] 20 mg PO QHS #30 12/29/19 Unknown Rx Trazodone HCl 150 mg PO QHS #100 12/29/19 Unknown Rx busPIRone [Buspar] 5 mg PO TID #90 12/29/19 Unknown Rx carBAMazepine [TEGretol] 200 mg PO BID #60 tablet 12/29/19 Unknown Rx Ondansetron [Zofran Odt] 4 mg PO Q8HR PRN #14 tab.rapdis 07/26/20 Unknown Rx Tamsulosin [Flomax] 0.4 mg PO QDAY #14 cap 07/26/20 Unknown Rx oxyCODONE /ACETAMINOPHEN [Percocet 1 tab PO Q6HR PRN #14 tablet 07/26/20 Unknown Rx 5/325] Divalproex Dr [DepaKOTE DR] 500 mg PO BID #60 tablet 12/18/20 Unknown Rx Melatonin [Melatonin 5MG CAP] 5 mg PO QHS #30 capsule 12/18/20 Unknown Rx OLANZapine [Zyprexa] 15 mg PO DAILY #30 tablet 12/18/20 Unknown Rx Sulfamethoxazole/Trimethoprim 1 each PO BID 10 Days #20 tablet 12/18/20 Unknown Rx [Bactrim DS TAB] hydrOXYzine PAMOATE [Vistaril] 25 mg PO BID PRN #60 capsule 12/18/20 Unknown Rx Allergies Allergy/AdvReac Type Severity Reaction Status Date / Time amoxicillin Allergy Unknown Verified 12/17/18 18:21 Penicillins Allergy Unknown Verified 12/17/18 18:21 ED Review of Systems ROS: Stated complaint: MH EVAL/MED REFILL Other details as noted in HPI Constitutional: denies: chills, fever Eyes: denies: eye pain, eye discharge, vision change ENT: denies: ear pain, throat pain Respiratory: denies: cough, shortness of breath, wheezing Cardiovascular: denies: chest pain, palpitations Endocrine: no symptoms reported Gastrointestinal: denies: abdominal pain, nausea, diarrhea Genitourinary: denies: urgency, dysuria Musculoskeletal: denies: back pain, joint swelling, arthralgia Skin: denies: rash, lesions Neurological: denies: headache, weakness, paresthesias Psychiatric: as per HPI, anxiety, depression, auditory hallucinations, visual hallucinations, homicidal thoughts, suicidal thoughts Hematological/Lymphatic: denies: easy bleeding, easy bruising ED Past Medical Hx - Past Medical History Previous Medical History?: Yes Hx Seizures: Yes Hx Psychiatric Treatment: Yes (bipolar,) Additional medical history: h pylori - Surgical History Past Surgical History?: Yes Additional Surgical History: intubated, abd surgery - Family History Family history: no significant - Social History Smoking Status: Never Smoker Substance Use Type: None - Medications Home Medications: Home Medications Medication Instructions Recorded Confirmed Last Taken Type Topiramate [Topamax] 50 mg PO BID 12/24/18 12/24/18 12/23/18 History Tamsulosin [Flomax] 0.4 mg PO ONCE 14 Days #14 capsule 12/19/19 Unknown Rx Divalproex ER [Depakote ER] 1,500 mg PO QHS #30 12/29/19 Unknown Rx LORazepam [Ativan] 1 mg PO BID #30 tablet 12/29/19 Unknown Rx OLANZapine [Zyprexa] 20 mg PO QHS #30 12/29/19 Unknown Rx Trazodone HCl 150 mg PO QHS #100 12/29/19 Unknown Rx busPIRone [Buspar] 5 mg PO TID #90 12/29/19 Unknown Rx carBAMazepine [TEGretol] 200 mg PO BID #60 tablet 12/29/19 Unknown Rx Ondansetron [Zofran Odt] 4 mg PO Q8HR PRN #14 tab.rapdis 07/26/20 Unknown Rx Tamsulosin [Flomax] 0.4 mg PO QDAY #14 cap 07/26/20 Unknown Rx oxyCODONE /ACETAMINOPHEN [Percocet 1 tab PO Q6HR PRN #14 tablet 07/26/20 Unknown Rx 5/325] Divalproex Dr [DepaKOTE DR] 500 mg PO BID #60 tablet 12/18/20 Unknown Rx Melatonin [Melatonin 5MG CAP] 5 mg PO QHS #30 capsule 12/18/20 Unknown Rx OLANZapine [Zyprexa] 15 mg PO DAILY #30 tablet 12/18/20 Unknown Rx Sulfamethoxazole/Trimethoprim 1 each PO BID 10 Days #20 tablet 12/18/20 Unknown Rx [Bactrim DS TAB] hydrOXYzine PAMOATE [Vistaril] 25 mg PO BID PRN #60 capsule 12/18/20 Unknown Rx ED Physical Exam - General Limitations: No Limitations General appearance: alert, in no apparent distress - Head Head exam: Present: atraumatic, normocephalic - Eye Eye exam: Present: normal appearance - ENT ENT exam: Present: mucous membranes moist - Neck Neck exam: Present: normal inspection - Respiratory Respiratory exam: Present: normal lung sounds bilaterally. Absent: respiratory distress, wheezes, rales - Cardiovascular Cardiovascular Exam: Present: regular rate, normal rhythm. Absent: systolic murmur, diastolic murmur, rubs, gallop - GI/Abdominal GI/Abdominal exam: Present: soft, normal bowel sounds. Absent: distended, tenderness, guarding - Rectal Rectal exam: Present: deferred - Extremities Exam Extremities exam: Present: normal inspection - Back Exam Back exam: Present: normal inspection - Neurological Exam Neurological exam: Present: alert, oriented X3 - Psychiatric Psychiatric exam: Present: agitated, anxious, homicidal ideation, suicidal ideation - Expanded Psychiatric Exam Expanded Focused psych exam: Present: pressured speech, internal stimuli, delusional, re stlessness - Skin Skin exam: Present: warm, dry, intact, normal color. Absent: rash ED Course Vital Signs 12/18/20 12/18/20 01:39 01:41 Temperature 98.3 F Pulse Rate 95 H Respiratory 18 20 Rate Blood Pressure 122/93 [Right] O2 Sat by Pulse 96 96 Oximetry - Reevaluation(s) Reevaluation #1: Patient placed on a ER hold. Patient will be given Geodon and Ativan for anxiety and agitation and restlessness. Patient is medically cleared. Patient will remain in the ER as an ER hold. Patient will remain in the ER until the patient is cleared by psychiatry mental health team. Patient's final disposition will come from our psychiatry team. 12/18/20 02:05 ED Medical Decision Making - Lab Data Result diagrams: 12/18/20 01:26 12/18/20 01:26 - Medical Decision Making Patient is a 30-year-old male who presents emergency room for agitation, suicid al ideation, homicidal ideation, acute psychosis. During this evaluation, the patient was restless and agitated. Patient given Geodon and Ativan. Patient had labs done which were essentially unremarkable except for UTI. Patient is medically cleared. Patient remained in the ER as an ER hold patient is cleared by psychiatry mental health team. Patient's this patient will come from our psychiatry mental health team. - Differential Diagnosis Mental health, suicidal ideation, homicidal ideation, hallucination, psycho Critical care attestation.: If time is entered above; I have spent that time in minutes in the direct care of this critically ill patient, excluding procedure time. ED Disposition Clinical Impression: Acute psychosis, Agitation, Suicidal ideation, Homicidal ideations, UTI (urinary tract infection), bacterial UTI (urinary tract infection) Qualifiers: Urinary tract infection type: acute cystitis Hematuria presence: with hematuria Qualified Code(s): N30.01 - Acute cystitis with hematuria Disposition: TO HOME OR SELFCARE Is pt being admited?: No Does the pt Need Aspirin: No Condition: Stable Additional Instructions: OUTPATIENT MENTAL HEALTH RESOURCES [facility], [facility] Michelle Henderson MD: [address] [place] [address] [place] [address] [place] [address] [place] [facility]: [employer] [address] [place] [address] [place] [address] [phone] [facility]: [facility] Healthcare: [address] [facility] [address] [facility] [place] [address] [facility] [address] [facility]: Larry Liu MD: [id number] [facility] [address] [facility] [id number] [facility]: [address] [place], [place] [id number] [phone] [place] CRISIS AND ACCESS LINE: Prescriptions: Melatonin [Melatonin 5MG CAP] 5 mg PO QHS #30 capsule Sulfamethoxazole/Trimethoprim [Bactrim DS TAB] 1 each PO BID 10 Days #[address] [DepaKOTE ] 500 mg PO BID #60 tablet hydrOXYzine PAMOATE [Vistaril] 25 mg PO BID PRN #60 capsule PRN Reason: Anxiety OLANZapine [Zyprexa] 15 mg PO DAILY #30 tablet Referrals: PRIMARY CARE, [Primary Care Provider] - 3-5 Days Time of Disposition: 02:07
--- NOTE | 2020-12-18 10:59 | Event Note ---
S: No events reported overnight O: Vital Signs 12/18/20 12/18/20 01:39 01:41 Temperature 98.3 F Pulse Rate 95 H Respiratory 18 20 Rate Blood Pressure 122/93 [Right] O2 Sat by Pulse 96 96 Oximetry A: Psychosis P: Awaiting psych eval
--- NOTE | 2020-12-18 11:05 | Consultation ---
History of Present Illness - Reason for Consult Consult date: 12/18/20 Reason for consult: psychosis - History of Present Psychiatric Illness Per ER Note: Patient is a 30-year-old male presents emergency room for a mental health evaluation. Patient states he has been off his medications for 4 days. Patient is complaining of suicidal and homicidal ideation. Patient complaining of audiovisual hallucinations. Patient states that he cannot stop seen. P atient states that he is out to get people. Patient states that people are out to get him. Patient states that he feels bugs crawling all over him. Patient denies physical complaints. Patient denies headache. Patient denies chest pain and shortness of breath patient denies fever or chills. The patient was seen today, he is calm and cooperative. He says he's been off his meds for four days. The patient says he did not receive any scripts just papers with the meds. He denies SI/HI or hallucinations of any kind. The patient says "I edward get suicidal when I get mad." The patient says he was depressed on and off. I recommended an antidepressant to the patient. He replied "no, I can't take them. Too many side effects." He denies hallucinations of any kind. The pat jeanentte says he has a payee but did not know her phone number. The patient asks when was he leaving and was he getting his medications. The patient tells me that he refused his COVID test initially. He says the nurse walked out. He tells me that he is now ready to take it. PAST PSYCHIATRIC HISTORY: Diagnoses: Schizophrenia Suicide attempts or Self-harm behavior: Denies Prior psychiatric hospitalizations: Yes Substance Abuse history: Denies Previous psychiatric medications tried: depakote, vistaril, melaonin, olanzapine. Outpatient treatment: not in awhile PAST MEDICAL HISTORY: None reported or document Family Psychiatric History: None reported or documented SOCIAL HISTORY Marital Status: Single Living Arrangements: with guardian Employment Status: Disabled Access to guns/weapons: denies Education: History of Abuse: denies Legal History: denies REVIEW OF SYSTEMS Constitutional: Negative for weight loss ENT: Negative for stridor Respiratory: Negative for cough or hemoptysis All other systems reviewed and are negative MENTAL STATUS EXAMINATION General Appearance and Behavior: Age appropriate, wearing appropriate clothes, cooperative polite with questioning, good eye contact, calm and cooperative Cooperation: cooperative Psychomotor Behavior: Psychomotor normal Mood: okay Affect and affective range: congruent with stated mood Thought Process: goal oriented Thought Content: denies Speech: Normal volume, Regular rate and rhythm Suicidal Ideation: Denies Homicidal Ideation: Denies hallucination: Denies Delusions: None elicited Impulse Control: Limited Insight and Judgment: Poor Memory: Limited Attention: attentive Orientation: Alert and oriented Diagnoses: Bipolar Disorder Treatment Plan Depjuan DR 500mg po BID Olanzapine 15mg po daily Vistaril 25mg po BID Melatonin 5mg po qhs sitter: defer to primary Medical: primary Disposition: Do not recommend acute psychiatric inpatient. The patient understands that if SI/HI reoccur he is to seek immediate assistance. Will sign off. Thanks Case staffed with Dr. Lopez Medications and Allergies Allergies Allergy/AdvReac Type Severity Reaction Status Date / Time amoxicillin Allergy Unknown Verified 12/17/18 18:21 Penicillins Allergy Unknown Verified 12/17/18 18:21 Home Medications Medication Instructions Recorded Confirmed Last Taken Type Topiramate [Topamax] 50 mg PO BID 12/24/18 12/24/18 12/23/18 History Tamsulosin [Flomax] 0.4 mg PO ONCE 14 Days #14 capsule 12/19/19 Unknown Rx Divalproex ER [Depakote ER] 1,500 mg PO QHS #30 12/29/19 Unknown Rx LORazepam [Ativan] 1 mg PO BID #30 tablet 12/29/19 Unknown Rx OLANZapine [Zyprexa] 20 mg PO QHS #30 12/29/19 Unknown Rx Trazodone HCl 150 mg PO QHS #100 12/29/19 Unknown Rx busPIRone [Buspar] 5 mg PO TID #90 12/29/19 Unknown Rx carBAMazepine [TEGretol] 200 mg PO BID #60 tablet 12/29/19 Unknown Rx Ondansetron [Zofran Odt] 4 mg PO Q8HR PRN #14 tab.rapdis 07/26/20 Unknown Rx Tamsulosin [Flomax] 0.4 mg PO QDAY #14 cap 07/26/20 Unknown Rx oxyCODONE /ACETAMINOPHEN [Percocet 1 tab PO Q6HR PRN #14 tablet 07/26/20 Unknown Rx 5/325] Divalproex Dr [DepaKOTE DR] 500 mg PO BID #60 tablet 12/18/20 Unknown Rx Melatonin [Melatonin 5MG CAP] 5 mg PO QHS #30 capsule 12/18/20 Unknown Rx OLANZapine [Zyprexa] 15 mg PO DAILY #30 tablet 12/18/20 Unknown Rx Sulfamethoxazole/Trimethoprim 1 each PO BID 10 Days #20 tablet 12/18/20 Unknown Rx [Bactrim DS TAB] hydrOXYzine PAMOATE [Vistaril] 25 mg PO BID PRN #60 capsule 12/18/20 Unknown Rx Mental Status Exam - Vital signs Last Vital Signs Temp 98.3 F 12/18/20 01:39 Pulse 95 H 12/18/20 01:39 Resp 20 12/18/20 01:41 BP 122/93 12/18/20 01:39 Pulse Ox 96 12/18/20 01:41 Results Result Diagrams: 12/18/20 01:26 12/18/20 01:26 Abnormal lab results 12/18/20 12/18/20 12/18/20 Range/Units 01:26 01:26 01:26 MCHC (32-34) % RDW (13.2-15.2) % [place] % (Auto) (0.0-7.3) % [place] # (Auto) (0.0-0.8) K/mm3 BUN 27 H (9-20) mg/dL Urine WBC (Auto) (0.0-6.0) /HPF Salicylates < 0.3 L (2.8-20.0) mg/dL Acetaminophen 5.0 L (10.0-30.0) ug/mL 12/18/20 12/18/20 Range/Units 01:26 01:40 MCHC 35 H (32-34) % RDW 13.1 L (13.2-15.2) % [place] % (Auto) 13.7 H (0.0-7.3) % [place] # (Auto) 1.1 H (0.0-0.8) K/mm3 BUN (9-20) mg/dL Urine WBC (Auto) 18.0 H (0.0-6.0) /HPF Salicylates (2.8-20.0) mg/dL Acetaminophen (10.0-30.0) ug/mL All other labs normal.
== END 2020-12-18 13:00 | disposition home or self-care (01) ==
LOC: ED 00:53
DX: F23 Brief psychotic disorder (principal); R45.851 Suicidal ideations; R45.850 Homicidal ideations; N39.0 Urinary tract infection, site not specified; R56.9 Unspecified convulsions; B96.89 Other specified bacterial agents as the cause of diseases classified elsewhere; F31.9 Bipolar disorder, unspecified; Z98.890 Other specified postprocedural states; Z79.899 Other long term (current) drug therapy; Z88.1 Allergy status to other antibiotic agents; Z88.0 Allergy status to penicillin
CPT/HCPCS: 36415; 80048; 80307; 81001; 85025; 87086; 96372; 99284; J2060; J3486; 80320; G0480